=== PATIENT | female | born 1995 | race African-American/Black ===

== ENCOUNTER 2023-06-10 01:29 | Emergency (ER) | payer MEDICAID, SELFPAY ==
[2023-06-10 01:41] VITALS: BP 125/88; PULSE 99; RESP 20; TEMP 36.4; O2SAT 96; BMI 21.6
--- NOTE | 2023-06-10 02:21 | ED_ITS ---
HPI - General Adult General Date Seen: 06/10/23 Chief complaint: Anxiety Stated complaint: Anxiety Time Seen by Provider: 06/10/23 01:34 Source: patient and family Mode of arrival: ambulatory Limitations: no limitations History of Present Illness HPI narrative: Patient is a 28-year-old female who presents here with her sister ambulatory for evaluation of anxiety. She tells me she drinks a lot alcohol on the weekends, but does not drink during the week, her last known was yesterday approximately 24 hours, she woke up tonight she was jittery shaky, and having a panic attack according to her sister. This has been increasing. She tells me she does use the alcohol 2, her nerves. She she has previously been on medications with tells me that they work slowly, and they do not help her. She was hospitalized for anxiety at [facility] about 4 months ago. She tells me she is not suicidal or homicidal. She is very vague, and does not really want to talk to me at all. She just wants something for her shakiness, and to go home. 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 (ICD-10) Social History Smoking Status: Never smoker How often do you have a drink containing alcohol: 4 or more times a week How many standard drinks containing alcohol do you have on a typical day: 5 or 6 How often do you have six or more drinks on one occasion: Weekly AUDIT-C Alcohol total score: 9 Non-prescribed substance use: denies use service: No Exam Narrative: Exam Narrative: On examination with multiple people present including Lidia the nurse, her pupils are equal round reactive to light there is no scleral icterus or redness, is a very strong gag reflex any time she opens her mouth she tends to get egg. There is some redness of her throat, likely from repeated vomiting. She is sort of dry also. With not a lot of wetness to her mucous membranes. There is no lymphadenopathy anterior posterior chains. Her neck is supple full range of motion with absence of meningismus. Her chest is good air entry bilaterally, heart sounds are normal. Abdomen shows some mild tenderness in her epigastric region. Bowel sounds are normal. There is no guarding no pedal splenomegaly. She moves all extremities independently and well, but is very tremulousness. Const: Vital Signs, click to edit/add: Vital Signs - 24 hr 06/10/23 01:41 06/10/23 04:06 Temperature 97.6 F Pulse Rate [Left P ulse Oximeter] 99 85 Respiratory Rate 20 16 Blood Pressure [Ri ght Upper Arm] 125/88 Pulse Oximetry 96 99 Oxygen Delivery Me thod Room Air Room Air Documenting provider has reviewed patient's vital signs: yes Course Course Hospital Course: My Nurses were able to get an IV in, we did give her couple L fluids. As her urine was dry/concentrated. Her electro lytes returned with good values, LFTs are normal, her urine was positive for cocaine. We did give her 1 mg of Ativan orally, her rocking behaviors stopped. With a nurse present explained to both her, and her permission her sister, that her urine was positive for cocaine, she denied using cocaine and said it must have come from being spiked. What I am seeing tonight, is part and parcel with use of cocaine, at least the anxiety, pupillary dilatation, appetite suppression, restlessness agitation, anxiety, with this. I would recommend treatment, for her alcohol use disorder, and potentially for other addictions. Starting with a good primary care doctor would be a good idea, going on with counseling. I did get report from [facility], he was hospitalized there for anxiety, and also alcohol use disorder and reporting suicidal ideations.. This was for 7 days. Besides the hospitalization there is a history of 1 previous hospitalization in [place], Vital Signs Vital signs: Initial Vital Signs Temperature 97.6 F 06/10/23 01:41 Temperature Source Temporal Artery Scan 06/10/23 01:41 Pulse Rate 99 06/10/23 01:41 Pulse Rhythm Regular 06/10/23 01:41 Respiratory Rate 20 06/10/23 01:41 Blood Pressure 125/88 06/10/23 01:41 Blood Pressure Mean 100 06/10/23 01:41 Blood Pressure Position Sitting 06/10/23 01:41 Pulse Oximetry 96 06/10/23 01:41 Oxygen Delivery Method Room Air 06/10/23 01:41 Vital Signs Temperature 97.6 F 06/10/23 01:41 Pulse Rate 99 06/10/23 01:41 Respiratory Rate 20 06/10/23 01:41 Blood Pressure 125/88 06/10/23 01:41 Pulse Oximetry 96 06/10/23 01:41 Oxygen Delivery Method Room Air 06/10/23 01:41 Temperature 97.6 F 06/10/23 01:41 Pulse Rate 85 06/10/23 04:06 Respiratory Rate 16 06/10/23 04:06 Blood Pressure 125/88 06/10/23 01:41 Pulse Oximetry 99 06/10/23 04:06 Oxygen Delivery Method Room Air 06/10/23 04:06 Medical Decision Making MDM Narrative Medical decision making narrative: I discussed with her and her sister, I would like there start an IV do blood test, we will give her some Zofran and also some Benadryl. If her test is negative, her drug screen clear. We consider other options such as Ativan. I talked a little bit with her about counseling and primary care, we cannot give her a long-term prescription for anxiety here. And she will need to treat her alcohol use. Would like her to do a mental health assessment also. She will consider this. Medical Records Medical records reviewed: Yes I reviewed the patient's medical records Medical records narrative: I tried to pull up [facility] everywhere to get some history from the [facility] hospitalization, I was unable to Lab Data Labs: Lab Results 06/10/23 06/10/23 06/10/23 Range/Units 02:50 03:35 03:50 WBC 8.26 (4.50-11.00) K/uL RBC 5.04 (4.00-5.20) m/uL Hgb 15.9 (12.0-16.0) gm/dL Hct 46.5 (33.0-51.0) % MCV 92 (80-100) fL MCH 32 (26-34) pg MCHC 34 (32-36) gm/dL RDW Coeff of Michelle 13.0 (11.5-15.5) % Plt Count 306 (140-440) K/uL Neut % (Auto) 86.3 H (42.0-72.0) % Lymph % (Auto) 8.6 L (20-44) % [place] % (Auto) 4.5 (0.0-11.0) % Eos % (Auto) 0.0 (0.0-7.0) % Baso % (Auto) 0.4 (0.0-3.0) % Neut # (Auto) 7.10 H (1.7-7.0) K/uL Lymph # (Auto) 0.70 L (0.90-2.90) K/uL [place] # (Auto) 0.40 (0.00-0.90) K/UL Eos # (Auto) 0.00 (0.00-0.50) K/uL Baso # (Auto) 0.03 (0.00-0.30) K/uL Abs Immat Gran (auto) 0.02 (0.00-0.30) K/uL Imm/Tot Granulo (auto) 0.2 % Sodium 136 (135-149) mmol/L Potassium 3.7 (3.6-5.1) mmol/L Chloride 100 (96-114) mmol/L Carbon Dioxide 22 (20-32) mmol/L BUN 8 (5-24) mg/dL Creatinine 0.5 (0.5-1.5) mg/dL Estimated Creat Clear 153.43 Estimated GFR 133 ml/min Glucose 83 (60-115) mg/dL Calcium 9.5 (8.4-10.6) mg/dL Total Bilirubin 1.3 (0.1-1.5) mg/dL Direct Bilirubin 0.4 (0.0-0.5) mg/dL AST 54 H (12-35) U/L ALT 29 (4-35) U/L Alkaline Phosphatase 97 (40-150) U/L Total Protein 8.1 (6.0-8.3) g/dL Albumin 4.8 (3.3-5.0) g/dL Urine Color Yellow (Yellow) Urine Appearance Clear (Clear) Urine pH 6.5 (5.0-8.5) Ur Specific [place] >= 1.030 (1.000-1.030) Urine Protein 2+ A (Negative) Urine Glucose (UA) Negative (Negative) Urine Ketones 4+ A (Negative) Urine Blood 1+ A (Negative) Urine Nitrite Negative (Negative) Urine Bilirubin Negative (Negative) Urine Urobilinogen 0.2 (0.2-1.0) Ur Leukocyte Esterase Negative (Negative) Urine RBC 2-5 A (0-2) Urine WBC 0-2 (0-5) Ur Squamous Epith Cells Few (None-Few) Urine Bacteria Moderate A (None) Urine Mucus Many A (None) Urine HCG, Qual Negative (Negative) Urine Opiates Screen Negative (Negative) Ur Oxycodone Screen Negative (Negative) Urine Methadone Screen Negative (Negative) Ur Propoxyphene Screen Negative (Negative) Ur Barbiturates Screen Negative (Negative) U Tricyclic Antidepress Negative (Negative) Ur Phencyclidine Scrn Negative (Negative) Ur Amphetamines Screen Negative (Negative) U Methamphetamines Scrn Negative (Negative) U Benzodiazepines Scrn Negative (Negative) Urine Cocaine Screen POSITIVE A (Negative) U Marijuana (THC) Screen Negative (Negative) Ur Drug Screen Comment See Note Ethyl Alcohol < 0.01 L (0.01-0.03) % Lab Acknowledgement Test Added Discharge Plan Discharge Clinical Impression: Anxiety, History of alcohol use disorder, Positive urine drug screen Patient Disposition: Home w/ Parent or Adult Condition: Improved Instructions: Generalized Anxiety Disorder (ED), Anxiety (ED), Alcohol Use Disorder (ED) Additional Instructions: Home rest, follow-up with counselor, for anxiety, alcohol use, or other potential use issues. All the electrolytes and the urine were ok. That is reasurring, but the urine tox was positive for Cocaine. This can produce an anxiety like state. There is help in the form of counselling, and treatment for the above. Activity Level: Light activity Prescriptions: No Action Kenalog 10 mg/mL suspension 10 mg intra-articular ONCE Qty: 1 0RF No Known Home Medications Follow Up/Referrals: Archana Saucedo MD [Staff Physician] - Provider,Not a Local [Primary Care Provider] - Stand Alone Forms: [email or web address] Info Instructions
[2023-06-10 03:00] LABS: Appearance Urine Clear (Clear); Bilirubin Urine Negative (Negative); Blood Urine 1+ (Negative); Color Urine Yellow (Yellow); Glucose Urine Negative (Negative); Ketones Urine 4+ (Negative); Leukocyte Esterase Urine Negative (Negative); Nitrite Urine Negative (Negative); Protein Urine 2+ (Negative); Specific Gravity Urine >= 1.030 (1.000-1.030); Urobilinogen Urine 0.2 (0.2-1.0); pH Urine 6.5 (5.0-8.5)
[2023-06-10] MEDS: ONDANSETRON ODT 4 MG TAB PO (03:00)
--- NOTE | 2023-06-10 03:01 | ED.NURSE ---
IV access attempted x2 unsuccessfully by this RN and once unsuccessfully by another. Patient declines further IV attempts. notified. Patient given zofran ODT per DEC. Patient provided urine sample that is taken to lab.
[2023-06-10 03:06] LABS: Bacteria Urine Moderate; Mucus Urine Many; Squamous Epithelial Cell Urine Few (None-Few); Ur HCG Qualitative* Negative (Negative); WBC Urine 0-2 (0-5)
[2023-06-10] MEDS: LORazepam 1 MG TABLET PO (03:24)
[2023-06-10] MEDS: 0.9 % SODIUM CHLORIDE 1000 ml 1,000 ML IV ×2 (03:53→04:53)
[2023-06-10 03:58] LABS: Basophils Absolute Auto 0.03 K/uL (0.00-0.30); Basophils Percent Auto 0.4 % (0.0-3.0); Hematocrit 46.5 % (33.0-51.0); Hemoglobin* 15.9 gm/dL (12.0-16.0); Immature Granulocytes Abs Auto 0.02 K/uL (0.00-0.30); Immature Granulocytes Pct Auto 0.2 %; Lymphocytes Percent Auto 8.6 % (20-44); Mean Corpuscular HGB Conc 34 gm/dL (32-36); Mean Corpuscular Hemoglobin 32 pg (26-34); Mean Corpuscular Volume 92 fL (80-100); Monocytes Percent Auto 4.5 % (0.0-11.0); Neutrophils Percent Auto 86.3 % (42.0-72.0); Platelet Count* 306 K/uL (140-440); Red Blood Count 5.04 m/uL (4.00-5.20); White Blood Count* 8.26 K/uL (4.50-11.00)
[2023-06-10] MEDS: ONDANSETRON 2 MG/ML inj 4 MG IVP (03:58)
[2023-06-10 04:01] LABS: Slide Review Reflex No
[2023-06-10] MEDS: PANTOPRAZOLE SODIUM 40 MG INJ IVP (04:05)
[2023-06-10 04:06] VITALS: PULSE 85; RESP 16; O2SAT 99
[2023-06-10 04:09] LABS: Amphetamine Screen Urine Negative (Negative); Barbiturate Screen Urine Negative (Negative); Benzodiazepines Screen Urine Negative (Negative); Cannabinoid Screen Urine Negative (Negative); Cocaine Screen Urine POSITIVE (Negative); Methadone Screen Urine Negative (Negative); Methamphetamines Screen Urine Negative (Negative); Opiate Screen Urine Negative (Negative); Oxycodone Screen Urine Negative (Negative); Phencyclidine Screen Urine Negative (Negative); Tricyclic Antidepressant Urine Negative (Negative)
[2023-06-10 04:11] LABS: Albumin* 4.8 g/dL (3.3-5.0); Chloride* 100 mmol/L (96-114); Sodium* 136 mmol/L (135-149)
[2023-06-10 04:12] LABS: Potassium* 3.7 mmol/L (3.6-5.1)
[2023-06-10 04:14] LABS: Aspartate Amino Transferase* 54 U/L (12-35); Bilirubin Direct* 0.4 mg/dL (0.0-0.5); Bilirubin Total* 1.3 mg/dL (0.1-1.5); Blood Urea Nitrogen* 8 mg/dL (5-24); Carbon Dioxide* 22 mmol/L (20-32); Creatinine* 0.5 mg/dL (0.5-1.5); Est. Creatinine Clearance* 153.43; Estimated Glomerular Filt Rate 133 ml/min; Glucose* 83 mg/dL (60-115); Total Protein* 8.1 g/dL (6.0-8.3)
[2023-06-10 04:15] LABS: Alanine Aminotransferase* 29 U/L (4-35); Alkaline Phosphatase* 97 U/L (40-150); Calcium* 9.5 mg/dL (8.4-10.6)
[2023-06-10 04:16] LABS: Ethanol* < 0.01 % (0.01-0.03)
== END 2023-06-10 06:22 | disposition home or self-care (01) ==
PROVIDERS: Emergency Provider Family Medicine
DX: F41.9 Anxiety disorder, unspecified (principal); R82.79 Other abnormal findings on microbiological examination of urine
CPT/HCPCS: 36415; 80048; 80076; 80306; 81001; 81025; 82077; 85025; 87086; 87186; 96374; 96375; 99284; A9270; C9113; J2405; J7030